=== PATIENT | male | born 1955 | race Caucasian/White ===

== ENCOUNTER → 2022-03-18 | Outpatient (CLI) | payer MEDICARE, OTHER ==
[~2022-03-18] MED LIST: ELIQ5TAB PO; ENOX150I3 SC; LISI10TA22 PO; PANT40TA29 PO; SILD50TA2 PO
== END ==
LOC: M RAD 11:00
PROVIDERS: ATTEND Internal Medicine Medical Oncology
DX: Z86.718 Personal history of other venous thrombosis and embolism (principal)

== ENCOUNTER → 2022-11-05 | Outpatient (CLI) | payer MEDICARE, OTHER ==
[~2022-11-05] MED LIST changes: +WARF-21
== END ==
LOC: M LAB 09:06
PROVIDERS: ATTEND Internal Medicine Gastroenterology
DX: R19.7 Diarrhea, unspecified (principal)

== ENCOUNTER → 2022-11-07 | Outpatient (REF) | payer MEDICARE, OTHER | LOC: M LAB REF 11:21 | PROVIDERS: ATTEND Internal Medicine Gastroenterology | DX: R19.7 Diarrhea, unspecified (principal); R10.13 Epigastric pain ==

== ENCOUNTER → 2022-12-16 | Outpatient (CLI) | payer MEDICARE, OTHER | LOC: M LABSMTC 10:25 | PROVIDERS: ATTEND Anesthesiology | DX: Z01.812 Encounter for preprocedural laboratory examination (principal); Z11.52 Encounter for screening for COVID-19 ==

== ENCOUNTER 2022-12-19 09:25 | Day surgery (SDC) | payer MEDICARE, OTHER ==
[~2022-12-19] VITALS: Ht 175.3 cm; Wt 101.6 kg
[~2022-12-19 09:25] MED LIST changes: +NS 1,000 ML IV ONE
[2022-12-19] MEDS ORDERED: propofoL 200 MG/20 ML VIAL As Ordered ONE ×2 (10:47→11:18)
[2022-12-19] MEDS ORDERED: fentaNYL 100 MCG/2 ML INJECTION As Ordered ONE (10:47)
[2022-12-19] MEDS ORDERED: LIDOCAINE 2% 100MG/5ML SDV (FOR ANES.) As Ordered ONE (10:47)
[2022-12-19 12:05] VITALS: BP 170/87
== END 2022-12-19 12:14 | disposition home or self-care (01) ==
LOC: M OPP 09:25
PROVIDERS: ATTEND Internal Medicine Gastroenterology
DX: D12.6 Benign neoplasm of colon, unspecified (principal); K63.5 Polyp of colon; K64.8 Other hemorrhoids; K22.89 Other specified disease of esophagus; Z79.01 Long term (current) use of anticoagulants; Z79.899 Other long term (current) drug therapy; Z99.89 Dependence on other enabling machines and devices; G47.33 Obstructive sleep apnea (adult) (pediatric); Z86.718 Personal history of other venous thrombosis and embolism
CPT/HCPCS: 45380; 45385; 88305; J3010

== ENCOUNTER → 2023-07-17 | Outpatient (CLI) | payer MEDICARE, OTHER ==
[~2023-07-17] MED LIST changes: -NS 1,000 ML IV ONE; -WARF-21; +WARF-21 PO
== END ==
LOC: M RAD 15:15
PROVIDERS: ATTEND Internal Medicine Medical Oncology
DX: Z86.718 Personal history of other venous thrombosis and embolism (principal)

== ENCOUNTER → 2023-10-07 | Outpatient (REF) | payer MEDICARE, OTHER | LOC: M SFHCDERM 09:23 | PROVIDERS: ATTEND Dermatology | DX: C44.311 Basal cell carcinoma of skin of nose (principal) ==

== ENCOUNTER → 2023-10-28 | Outpatient (REF) | payer MEDICARE, OTHER ==
[~2023-10-28] MED LIST changes: +WARF-60 PO
== END ==
LOC: M SFHCDERM 17:20
PROVIDERS: ATTEND Dermatology
DX: T14.8XXD Other injury of unspecified body region, subsequent encounter (principal)